=== PATIENT | male | born 1945 | race Caucasian/White ===

== ENCOUNTER 2022-11-26 20:50 | Emergency (ER) | payer MEDICARE ==
[2022-11-26] MEDS ORDERED: Apixaban 5 MG Tab PO ONE (21:33)
== END 2022-11-26 23:10 | disposition home or self-care (01) ==
LOC: JP.ED 20:50
DX: J93.9 Pneumothorax, unspecified (principal); F17.210 Nicotine dependence, cigarettes, uncomplicated
CPT/HCPCS: 36415; 71046; 71260; 82565; 99284; A9270; J3490; Q9967